=== PATIENT | female | born 1975 | race Two or more races ===

== ENCOUNTER → 2025-02-20 | Outpatient (CLI) | payer MEDICAID, SELFPAY ==
--- NOTE | 2025-02-20 10:45 | XR_ITS ---
Examination: Breast ultrasound complete, bilateral Date and time of exam: February 20, 2025, 1015 hours INDICATIONS: Mammogram 12/06/2022 circumscribed 20 mm retroareolar nodule left breast, left breast sonogram 12/06/2022 2:00 to 7:00 retroareolar cyst Technique: Real-time grayscale ultrasonographic imaging bilateral breasts, including all 4 quadrants as well as nipple retroareolar and axillary regions. Findings: Sonographic images right breast No cystic or solid mass Sonographic images left breast 2:00 cyst 2 x 2 mm 7:00 cyst 3 x 3 mm Retroareolar cysts 8 x 9 mm, 6 x 4 mm, 4 x 4 mm No solid nodules IMPRESSION: BI-RADS Category 2: Benign findings
--- NOTE | 2025-02-20 11:45 | XR_ITS ---
Examination: Diagnostic digital mammography, bilateral Computer aided detection 3-D breast Tomosynthesis, bilateral Date and time of exam: February 20, 2025, 1037 hours, compared to mammograms dating to February 05, 2017h Technique: Nonmagnified MLO, CC views of the breasts to been obtained, reconstructed from 3-D Tomosynthesis images. R2 computer aided detection program utilized for evaluation of suspicious masses and/or abnormal calcifications. 3-D Tomosynthesis images obtained. Findings: The breasts are heterogeneously dense, which may obscure small masses 9 mm focal asymmetry inner upper right breast Benign calcifications Impression: BI-RADS Category 0: Incomplete: Need additional imaging evaluation Recommend follow-up spot tomographic views of 9 mm focal asymmetry indistinct margins inner upper right breast .
== END | disposition home or self-care (01) ==
PROVIDERS: PCP Physician Assistant; Referring Provider Physician Assistant; Visit Provider Physician Assistant
DX: N64.89 Other specified disorders of breast (principal)
CPT/HCPCS: 76641; 77062; 77066; G0279